=== PATIENT | male | born 1965 | race Caucasian/White ===

== ENCOUNTER 2016-05-28 22:44 | Emergency (ER) | payer OTHER ==
--- NOTE | ~2016-05-28 | CR169 ---
[facility]. [facility] A Service of [facility] & [facility] RADIOLOGY TEXT RESULTS PATIENT: EJ LIVE LOCATION: SED : 61 UNIT #: [id number] AGE: [address]: Leonie Bird SEX: M ORDER DR: [id number] [place] [id number] E MR#: [id number] Acc #: [id number] NAME: EJ LIVE : 1965 SEX: M STUDY DATE/TIME: 05/28/2016 23:45 UNIT: SED ROOM: STUDY DESCRIPTION: CR Knee 2 Views Lt Attending Physician: Leonie Bird Pa-C Ordering Physician: Shawn Arechiga D.O. Primary Care Physician: Ian Villagomez M.D. MEDICAL IMAGING REPORT This report is preliminary unless electronic signature is present. EXAM Left knee, 05/28 at 2345. INDICATION Knee pain and swelling. Pain is chronic for 1 year but symptoms have worsened over the last several days. FINDINGS 2 views of the left knee are compared with 11/02/2008. No fracture or malalignment is seen. There is no joint effusion. There is soft tissue swelling overlying the patellar tendon. This has worsened since the prior study. There is no soft tissue gas or radiopaque foreign body. IMPRESSION The bony structures are normal and there is no joint effusion. There is marked soft tissue swelling over the patellar tendon. No soft tissue gas or radiopaque foreign body is seen. Dictated by... Balwinder Vila Jr., M.D. THIS IS AN ELECTRONICALLY VERIFIED REPORT Balwinder Vila Jr., M.D. at 05/29/2016 12:35 PM RANDOLPH/antonia TD: 05/29/2016 08:26 JOB #: [id number] MEDICAL IMAGING REPORT Page 1 of 1
--- NOTE | ~2016-05-28 | CR63 ---
[facility]. [facility] [place] Service of [facility] & [facility] RADIOLOGY TEXT RESULTS PATIENT: EJ LIVE LOCATION: SED : 61 UNIT #: [id number] AGE: [address]: Leonie Bird SEX: M ORDER DR: [id number] [place] [id number] E MR#: [id number] Acc #: [id number] NAME: EJ LIVE : 1965 SEX: M STUDY DATE/TIME: 05/28/2016 23:43 UNIT: SED ROOM: STUDY DESCRIPTION: CR Chest 2 View Attending Physician: Leonie Bird Pa-C Ordering Physician: Shawn Arechiga D.O. Primary Care Physician: Ian Villagomez M.D. MEDICAL IMAGING REPORT This report is preliminary unless electronic signature is present. EXAM Chest x-ray on 05/28 at 23:43. INDICATIONS Congestion, cough, fatigue for 1 week. FINDINGS 2 views of the chest are compared with 01/11/2016. Cardiac and mediastinal contours are normal. The lungs are clear. There is no pneumothorax. IMPRESSION No active disease. Dictated by... Balwinder Vila Jr., M.D. THIS IS AN ELECTRONICALLY VERIFIED REPORT Balwinder Vila Jr., M.D. at 05/29/2016 12:35 PM RANDOLPH/fiorella TD: 05/29/2016 08:23 JOB #: [id number] MEDICAL IMAGING REPORT Page 1 of 1
[~2016-05-28 22:44] MED LIST: ALBUTEROL17 GM INH; AMOXICILLIN PO; AMOXICILLIN500 M1 PO; AMOXICILLIN875 MG PO; AUGMENTIN875 M1 PO; BACTRIM DS TABL1 TA1 PO; BENZONATATE PO; CELEXA; CELEXA PO; CELEXA20 MG PO; CLONAZEPAM2 MG PO; COMBIVENT INH14.7 GM INH; CORTISPORI10 ML OTIC AD; DOXEPIN; ELIMITE60 GM TOP; FLEXERIL10 MG PO; GABAPENTIN400 MG PO; HYCODAN60 ML 5MG/ PO; KEPPRA1000 MG PO; KETOPROFEN PO; KLONOPIN; KLONOPIN PO; LORTAB 7.5-5001 TAB PO; MEDROL4 MG/DOSE- PO; MOTRIN600 MG PO; NAPROXEN PO; NEURONTIN; NEURONTIN PO; OXYCODONE HCL30 MG PO; PEN-VEE K PO; PERCOCET 10/3251 TAB; PERCOCET 10/3251 TAB PO; PERCOCET PO; PERCOCET5/325 PO; PHENERGAN PO; PREDNISONE PO; PREDNISONE10 MG PO; RISPERIDONE; RISPERIDONE PO; ROBITUSSIN A-C-S1 ML PO; SYMBICORT INH; TESSALON PERLE100 M1 PO; TRAMADOL HCL100 MG PO; TRAZODONE HCL100 MG PO; TRAZODONE PO; ULTRAM PO; VIBRAMYCIN100 M1 PO; VICODIN PO; VISTARIL PO; VOLTAREN75 MG PO; ZITHROMAX PO; ZITHROMAX1 G/PKT PO
[2016-05-28 23:04] LABS: INFLUENZA A NEG (NEG); INFLUENZA B NEG (NEG)
== END 2016-05-29 00:57 | disposition home or self-care (01) ==
LOC: SED 22:44
PROVIDERS: Physician Assistant
DX: J06.9 Acute upper respiratory infection, unspecified (principal); M75.52 Bursitis of left shoulder; F31.9 Bipolar disorder, unspecified; G40.909 Epilepsy, unspecified, not intractable, without status epilepticus; Z88.2 Allergy status to sulfonamides; Z88.5 Allergy status to narcotic agent; Z88.1 Allergy status to other antibiotic agents; Z98.890 Other specified postprocedural states
CPT/HCPCS: 71020; 73560; 87804; 99283

== ENCOUNTER 2016-10-06 17:37 | Emergency (ER) | payer OTHER ==
[2016-10-06] MEDS ORDERED: NO MEDICATIONS (17:41)
[2016-10-06 18:20] LABS: AMPHETAMINE NEG (NEG); BARBITURATES NEG (NEG); BENZODIAZEPINES NEG (NEG); COCAINE POS (NEG); MARIJUANA NEG (NEG); OPIATES NEG (NEG); TRICYCLIC ANTIDEPRESSANTS NEG (NEG); U METHADONE NEG (NEG)
== END 2016-10-06 22:29 ==
LOC: SED 17:37
PROVIDERS: Student in an Organized Health Care Education/Training Program
DX: F33.9 Major depressive disorder, recurrent, unspecified (principal); Z88.2 Allergy status to sulfonamides; Z88.5 Allergy status to narcotic agent
CPT/HCPCS: 80307; 99285

== ENCOUNTER 2016-10-06 18:31 | Inpatient (IN) | payer OTHER ==
[~2016-10-06] VITALS: Ht 188 cm; Wt 108.9 kg
--- NOTE | ~2016-10-06 | DS ---
Unit #: [id number] #: [id number] Patient: EJ LIVE [id number] [facility] [address] [place] [address] [id number] MR#: [id number] NAME: EJ LIVE ROOM: [facility] Age: 50 Sex: M Admission Date: 10/06/2016 : 1965 Discharge Date: 10/15/2016 Attending Physician: Lisandro Feng M.D. Primary Care Physician: Ian Villagomez M.D. DISCHARGE SUMMARY REASON FOR ADMISSION The patient is a 50-year-old white male admitted to the 2 [facility] unit with increasing depression and suicidal thinking. HOSPITAL COURSE The patient is admitted to the 2 [facility] unit and placed on suicide precautions. He was continued on previously prescribed home medications. Celexa was increased to 40 mg and the patient's Neurontin was also increased to 400 mg t.i.d. given complaints of ongoing pain. The patient participated actively within the therapeutic milieu and was generally well-behaved though on the day prior to discharge, he did get into a shouting match with a staff member requiring p.r.n. dose of Geodon. He was appropriately contrite over this episode when seen by this physician on 10/15 and requested discharge, it was so ordered. FINAL DIAGNOSES 1. Major depressive disorder, recurrent, moderate. 2. Chronic back pain. 3. Seizure disorder. FOLLOWUP CARE Followup to take place through the auspices of [facility] resources. DISCHARGE MEDICATIONS The patient is discharged on the following medications: 1. Keppra 1000 mg b.i.d. for seizure disorder. 2. Lotrisone cream applied to affected area b.i.d. for rash. 3. Celexa 40 mg daily for depression. 4. Mobic 7.5 mg b.i.d. for chronic pain. 5. Neurontin 400 mg t.i.d. for chronic pain. PROGNOSIS Considered fair. DIET AND ACTIVITY No dietary or physical restrictions were placed on the patient at the time of discharge. Unit #: [id number] #: [id number] Patient: EJ LIVE Dictated by... Lisandro Feng M.D. CB/sandra TD: 10/16/2016 20:16 JOB #: [id number] DISCHARGE SUMMARY Page 1 of 1 X Lisandro Feng MD DISCHARGE SUMMARY
--- NOTE | ~2016-10-06 | PN ---
Unit #: [id number] #: [id number] Patient: EJ LIVE [id number] [facility] [address] [place] [address] [id number] I MR#: [id number] NAME: EJ LIVE ROOM: [facility] Age: 50 Sex: M Admission Date: 10/06/2016 : 1965 Attending Physician: Lisandro Feng M.D. Admitting Physician: Lisandro Feng M.D. 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 He continues to endorse positive suicidal ideation, at least has increased his participation within the therapeutic milieu. We continue current treatment, and I have encouraged the patient to continue his increased participation. Dictated by... Lisandro Feng M.D. CB/bzg TD: 10/12/2016 14:43 JOB #: [id number] [facility] PROGRESS NOTES Page 1 of 1 X Lisandro Feng MD PROGRESS NOTE
--- NOTE | ~2016-10-06 | PN ---
Unit #: [id number] #: [id number] Patient: EJ LIVE [id number] [facility] [address] [place] [address] [id number] I MR#: [id number] NAME: EJ LIVE ROOM: P251 Age: 50 Sex: M Admission Date: 10/06/2016 : 1965 Attending Physician: Lisandro Feng M.D. Admitting Physician: Lisandro Feng M.D. Primary Care Physician: Eliseo White PROGRESS NOTES DATE 10/09/2016 DISCUSSION The patient remains seclusive to room with little participation within the therapeutic milieu. He continues to complain of severe back pain and continues to endorse positive suicidal ideation. Dictated by... Lisandro Feng M.D. CB/sandra TD: 10/09/2016 12:00 JOB #: [id number] [facility] PROGRESS NOTES Page 1 of 1 X Lisandro Feng MD X PROGRESS NOTE
--- NOTE | ~2016-10-06 | HP ---
Unit #: [id number] #: [id number] Patient: EJ LIVE [id number] [facility] [address] [place] [address] [id number] I MR#: [id number] NAME: EJ LIVE ROOM: [facility] Age: 50 Sex: M Admission Date: 10/06/2016 : 1965 Attending Physician: Lisandro Feng M.D. Admitting Physician: Lisandro Feng M.D. Primary Care Physician: Ian Villagomez M.D. HISTORY AND PHYSICAL HISTORY OF PRESENT ILLNESS The patient is a 50-year-old male, who has been admitted to [facility] for suicidal ideation. PAST MEDICAL HISTORY 1. Polysubstance abuse. 2. Chronic low back pain. 3. Seizure disorder. PAST SURGICAL HISTORY 1. Right inguinal hernia repair. 2. Traumatic brain injury requiring cranial surgery. ALLERGIES Sulfa, morphine, rofecoxib, and acetaminophen. HOME MEDICATIONS None. SOCIAL HISTORY Tobaccoism, alcohol, marijuana, crack use. FAMILY HISTORY Medically noncontributory. REVIEW OF SYSTEMS CONSTITUTIONAL: Denies fever or chills. HEENT: Denies sore throat, ear pain or runny nose. CARDIOVASCULAR: Denies chest pain, irregular heart rhythm or palpitations. CHEST: Denies shortness of breath or cough. No hemoptysis. GASTROINTESTINAL: Denies nausea, vomiting, diarrhea or chronic constipation. ENDOCRINE: Denies history of increased thirst or urination. No recent significant weight loss or gain. GENITOURINARY: Denies dysuria, frequency, or hematuria. SKIN: Endorses a rash. HEMATOLOGIC: Denies any increased bleeding or bruising. MUSCULOSKELETAL: Denies any hot, swollen joints. No generalized muscle pain. NEUROLOGIC: Denies problems with vision or speech. No frequent, severe headaches. No numbness, tingling or weakness in any extremities. Denies loss of bladder or bowel control. Unit #: [id number] #: [id number] Patient: EJ LIVE PHYSICAL EXAMINATION VITAL SIGNS: Temperature 98.4, heart rate 113, respirations 18, and blood pressure 174/84. He is on oxygen at 98%. He is 6 feet 2 inches and weighs 240 pounds. HEENT: Head: Atraumatic and normocephalic. Pupils are equal, round, and reactive. Extraocular movements are intact. No discharge from ears or nares. NECK: Supple. Trachea is midline. HEART: Regular rate and rhythm. LUNGS: Clear. ABDOMEN: Soft, nontender, and nondistended. : Not done. SKIN: Warm, dry, and rash on his arm, no lesions. EXTREMITIES: No clubbing, edema, or cyanosis. NEUROLOGIC: Cranial Nerves: II through XII: Intact. No focal deficits. Sensory and Motor Function: Grossly normal. Motor: Moves all extremities well. Coordination: Gait is normal. Deep Tendon Reflexes: Intact. IMPRESSION Psychiatric admission. RECOMMENDATIONS Psychiatric, will be per psychiatry. MEDICAL I see no contraindications to participating in facility's activities. MEDICAL PROGNOSIS Fair. MEDICAL CONDITION Stable. Dictated by... Trice Pat A.P.R.N. for Eliseo Hamilton TD: 10/07/2016 10:42 JOB #: [id number] HISTORY AND PHYSICAL Page 1 of 1 X Trice Pat APRN X HISTORY AND PHYSICAL
--- NOTE | ~2016-10-06 | PN ---
Unit #: [id number] #: [id number] Patient: EJ LIVE [id number] [facility] [address] [place] [address] [id number] I MR#: [id number] NAME: EJ LIVE ROOM: [facility] Age: 50 Sex: M Admission Date: 10/06/2016 : 1965 Attending Physician: Lisandro Feng M.D. Admitting Physician: Lisandro Feng M.D. Primary Care Physician: Eliseo White PROGRESS NOTES DATE 10/07/2016 DISCUSSION The patient is currently reporting ongoing suicidal ideation and dysphoric mood but does maintain some future orientations citing his plan to purchase a home within the next couple of weeks. His participation within the therapeutic milieu has been less than optimal. I have spoken with him regarding improving this aspect of his treatment. Dictated by... Lisandro Feng M.D. CB/james TD: 10/08/2016 13:46 JOB #: [id number] [facility] PROGRESS NOTES Page 1 of 1 X Lisandro Feng MD X PROGRESS NOTE
--- NOTE | ~2016-10-06 | PA ---
Unit #: [id number] #: [id number] Patient: EJ LIVE [id number] [facility] [address] [place] [address] [id number] I MR#: [id number] NAME: EJ LIVE ROOM: [facility] Age: 50 Sex: M Admission Date: 10/06/2016 : 1965 Date of Assessment: Attending Physician: Lisandro Feng M.D. Admitting Physician: Lisandro Feng M.D. Primary Care Physician: Ian Villagomez M.D. PSYCHIATRIC ASSESSMENT DATE OF SERVICE 10/07/2016. IDENTIFYING INFORMATION The patient is a 50-year-old white male, admitted with increasing suicidal and homicidal ideation. CHIEF COMPLAINT "I got screwed out of ." INFORMANTS The patient. The patient's reliability, fair. HISTORY OF PRESENT ILLNESS The patient is a 50-year-old white male, admitted after he had presented to this facility voicing positive suicidal and homicidal ideation. 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 The patient had hoped to live. The patient had been prescribed medication through office until 06/2016, but has not filled any medications since that time. The patient states that he is hearing voices telling him to harm himself. He states that he has been diagnosed with bipolar disorder in the past, but at the time of his last hospitalization was diagnosed with mood disorder, not otherwise specified. When seen today, the patient continues to endorse positive suicidal as well as homicidal ideation. He denies any psychotic symptoms at this time. He denies abuse of any psychoactive substances. He does complain of a history of chronic pain and seizure disorder. The patient reports that well currently homeless, he will be taking possession of house "on the ." PAST PSYCHIATRIC HISTORY As above. The patient was last hospitalized at this facility in 2011. He is not presently followed by an outpatient psychiatric provider. PAST MEDICAL HISTORY The patient suffers from degenerative disk disease and seizure disorder. MEDICATIONS Oxycodone, Neurontin, Celexa, clonazepam, and Keppra. ALLERGIES Sulfa, morphine, Rocephin, and acetaminophen. Unit #: [id number] #: [id number] Patient: EJ LIVE FAMILY HISTORY Noncontributory. SOCIAL HISTORY The patient is presently homeless. He continues to endorse positive suicidal and homicidal ideation. He denies any psychotic symptoms appeared to be somewhat impaired. ASSETS To be assessed. LIABILITIES Lack of resources. DIAGNOSTIC IMPRESSION Bipolar disorder, depressed phase; antisocial personality traits versus disorder; degenerative disk disease; seizure disorder. TREATMENT PLAN The patient will remain hospitalized for safety and stabilization. We will restart previously prescribed Neurontin, Celexa, and Keppra. Oxycodone and clonazepam well at this point to be held as the patient has not taken these medications in some time. The patient will participate in appropriate ramos and milieu activities with an estimated stay in the hospital 5 to 7 days. Appropriate duty to warn will be attended. Dictated by... Lisandro Feng M.D. SOLEDAD/yesenia TD: 10/07/2016 16:05 JOB #: [id number] PSYCHIATRIC ASSESSMENT Page 1 of 1 X Lisandro Feng MD X PSYCHIATRIC ASSESSMENT
--- NOTE | ~2016-10-06 | CO ---
Unit #: [id number] #: [id number] Patient: EJ LIVE [id number] [place] [address] [id number] I MR#: [id number] NAME: EJ LIVE ROOM: [facility] Age: 50 Sex: M Admission Date: 10/06/2016 : 1965 Attending Physician: Lisandro Feng M.D. Primary Care Physician: Ian Villagomez M.D. Consultation Date: 10/07/2016 CONSULTATION REPORT REASON FOR CONSULTATION Rash. SUBJECTIVE The patient states that he has had this circular itchy rash on his right arm for approximately one week. He denies any drainage from the rash. Denies any nausea, vomiting, fever, or chills. 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 OBJECTIVE GENERAL: The patient is a 50-year-old man who is awake and alert, in no acute distress. VITAL SIGNS: Stable. HEART: Regular rate and rhythm. LUNGS: Clear. ABDOMEN: Soft, nontender, nondistended. SKIN: Circular rash on right forearm. ASSESSMENT Ring warm on right arm. PLAN At this time, we will do clotrimazole 1% cream apply b.i.d. to affected area, betamethasone 0.05% cream apply b.i.d. to affected area. Dictated by... Trice Pat A.P.R.N. for Harvey Sanhces M.D. AM/yesenia TD: 10/07/2016 19:33 JOB #: [id number] Unit #: [id number] #: [id number] Patient: JE LIVE CONSULTATION REPORT Page 1 of 1 X Trice Pat APRN X CONSULTATION REPORT
--- NOTE | ~2016-10-06 | PN ---
Unit #: [id number] #: [id number] Patient: EJ LIVE [id number] [facility] [address] [place] [address] [id number] I MR#: [id number] NAME: EJ LIVE ROOM: [facility] Age: 50 Sex: M Admission Date: 10/06/2016 : 1965 Attending Physician: Lisandro Feng M.D. Admitting Physician: Lisandro Feng M.D. Primary Care Physician: Eliseo White PROGRESS NOTES DATE 10/14/2016 DISCUSSION The patient's mood is somewhat improved, and he is more active in the therapeutic milieu, but he continues to complain of severe back pain. I will increase his Mobic dose in hopes of addressing this, and we expect discharge within the next day or so. Dictated by... Lisandro Feng M.D. CB/bzg TD: 10/14/2016 13:53 JOB #: [id number] [facility] PROGRESS NOTES Page 1 of 1 X Lisandro Feng MD X PROGRESS NOTE
--- NOTE | ~2016-10-06 | PN ---
Unit #: [id number] #: [id number] Patient: EJ LIVE [id number] [facility] [address] [place] [address] [id number] I MR#: [id number] NAME: EJ LIVE ROOM: 63 Age: 50 Sex: M Admission Date: 10/06/2016 : 1965 Attending Physician: Lisandro Feng M.D. Admitting Physician: Lisandro Feng M.D. Primary Care Physician: Eliseo White PROGRESS NOTES DATE 10/11/2016 DISCUSSION The patient continues to complain of severe back pain in spite his recently been restarted on Neurontin and having had Mobic added. His participation within the therapeutic milieu remains poor. I have spoken with the patient regarding realistic expectations of inpatient care and anticipate a.m. discharge. Dictated by... Lisandro Feng M.D. SOLEDAD/sandra TD: 10/11/2016 12:53 JOB #: [id number] [facility] PROGRESS NOTES Page 1 of 1 X Lisandro Feng MD X PROGRESS NOTE
--- NOTE | ~2016-10-06 | PN ---
Unit #: [id number] #: [id number] Patient: EJ LIVE [id number] [facility] [address] [place] [address] [id number] I MR#: [id number] NAME: EJ LIVE ROOM: [facility] Age: 50 Sex: M Admission Date: 10/06/2016 : 1965 Attending Physician: Lisandro Feng M.D. Admitting Physician: Lisandro Feng M.D. Primary Care Physician: Eliseo White PROGRESS NOTES DATE 10/10/2016 DISCUSSION The patient remains dysphoric and fretful and continues to endorse positive suicidal ideation. He is at least more active within the therapeutic milieu. He is complaining of ongoing back pain and I will go ahead and start the patient on a combination of Neurontin and Mobic to address this. Dictated by... Lisandro Feng M.D. CB/lizz TD: 10/10/2016 22:08 JOB #: [id number] [facility]AZ[facility] PROGRESS NOTES Page 1 of 1 X Lisandro Feng MD X PROGRESS NOTE
[~2016-10-06 18:31] MED LIST changes: +NO MEDICATIONS
[2016-10-07 09:39] LABS: BASOPHIL# 0.1 X10e3 (0-0.3); BASOPHIL% 1.3 % (0-2.5); EOSINOPHIL# 0.3 X10e3 (0-0.7); EOSINOPHIL% 3.1 % (0.0-7.0); HEMATOCRIT 41.7 % (38.0-50.0); HEMOGLOBIN 14.1 gm/dL (13.0-16.0); LYMPHOCYTE# 2.7 X10e3 (1.0-3.5); LYMPHOCYTE% 30.7 % (17.0-45.0); MEAN CELL VOLUME 88.2 FL (83-96); MEAN CORPUSCULAR HEMOGLOBIN 29.9 PG (28-34); MEAN CORPUSCULAR HGB CONC 33.8 g/dL (30-36); MEAN PLATELET VOLUME 9.2 FL (6.5-11.5); MONOCYTE# 0.8 X10e3 (0-1.0); NEUTROPHIL# 4.9 X10e3 (1.5-7.1); NEUTROPHIL% 55.9 % (40-75); PLATELET COUNT 210 X10e3 (140-420); RED BLOOD COUNT 4.73 X10e (3.90-5.60); RED CELL DISTRIBUTION WIDTH 13.7 % (11.0-15.5); WHITE BLOOD COUNT 8.8 X10e3 (4.0-10.5)
[2016-10-07 09:42] LABS: DIFF IND NO
[2016-10-07 09:55] LABS: URINE APPEARANCE TURBID; URINE BILIRUBIN NEG (NEG); URINE BLOOD NEG (NEG); URINE COLOR YELLOW; URINE GLUCOSE NEG (NEG); URINE KETONE NEG (NEG); URINE LEUKOCYTE ESTERASE NEG (NEG); URINE NITRATE NEG (NEG); URINE PH 5.5 (5-8); URINE PROTEIN NEG (NEG); URINE SPECIFIC GRAVITY 1.029 (1.003-1.035)
[2016-10-07 09:59] LABS: ALBUMIN SERUM 3.9 g/dL (3.5-5.0); BILIRUBIN,TOTAL 0.4 mg/dL (0.2-2.0); BUN/CREATININE RATIO 17.77; CREATININE SERUM 0.9 mg/dL (0.6-1.4); GLOM FILT RATE Estimated 97.9 mL/min (>60); POTASSIUM 4.3 mmol/L (3.5-5.1); PROTEIN TOTAL SERUM 6.5 g/dL (6.0-8.3)
== END 2016-10-15 15:00 | disposition home or self-care (01) | DRG 885 ==
LOC: P2L 23:26
PROVIDERS: Psychiatry & Neurology Psychiatry
DX: F33.1 Major depressive disorder, recurrent, moderate (principal); G40.909 Epilepsy, unspecified, not intractable, without status epilepticus; R45.851 Suicidal ideations; F60.2 Antisocial personality disorder; Z88.2 Allergy status to sulfonamides; Z88.5 Allergy status to narcotic agent; Z88.8 Allergy status to other drugs, medicaments and biological substances; G89.29 Other chronic pain
CPT/HCPCS: 80053; 81003; 85025; J3486